=== PATIENT | male | born 1985 | race Caucasian/White ===

== ENCOUNTER 2016-08-18 13:25 | Emergency (ER) | payer BC, OTHER ==
[~2016-08-18] VITALS: Ht 180.3 cm; Wt 86.0 kg
[2016-08-18 13:26] VITALS: BP 119/75; PULSE 80; RESP 20; TEMP 97.9; O2SAT 96
--- NOTE | 2016-08-18 15:15 | PD ---
Physical Exam Date Seen by Provider: Aug 18, 2016 Time Seen by Provider: 15:13 Narrative 31 YOWM WITH C/O WORSENING CHRONIC ABD PAIN. WORSEN TODAY HAD N/V EARLIER NONE NOW. PAIN 10/25. NO F/C VSS AWAITING BED PLACEMENT Data Data Last Documented VS Vital Signs Date Time Temp Pulse Resp B/P Pulse Ox O2 Delivery O2 Flow Rate FiO2 08/18/16 13:26 97.9 80 20 119/75 96 Room Air [facility] Medical Record Reviewed: Yes Supervised Visit with JARROD: Yes Daljit Martinez Aug 18, 2016 15:15
[2016-08-18 19:36] VITALS: BP 149/90; PULSE 58; RESP 18; O2SAT 100
[2016-08-18] MEDS ORDERED: SODIUM CHLOR 0.9% 1000 ML INJ 1,000 ML IV SCH (19:37)
[2016-08-18 19:40] VITALS: O2SAT 99
[2016-08-18] MEDS ORDERED: PRIL20CA9 PO (19:40)
[2016-08-18] MEDS ORDERED: OMEP40CA2 PO (19:40)
--- NOTE | 2016-08-18 19:41 | PD ---
HPI Chief Complaint: Abdominal Pain Time Seen by Provider: 19:31 Travel History International Travel<30 days: No Contact w/Intl Traveler<30days: No Traveled to known affect area: No History of Present Illness HPI 31-year-old male here for evaluation of abdominal pain. The patient has history of cholecystectomy and appendectomy. He states that his cholecystectomy was 2 years ago, and for the last 2 years he has been having intermittent abdominal pains. These pains have worsened over the last several days. Pain is mainly right mid and right upper quadrant, described as sharp, 7 out of 10, worse with movement and palpation. Patient reports feeling a knot/ bulge in that area a couple days ago. No urinary symptoms. He has had some darkish stools. He is also felt nauseous but has not vomited. [facility] Social History Alcohol Use: Yes Tobacco Use: Yes Allergies-Medications (Allergen,Severity, Reaction): Coded Allergies: Tramadol (Verified Allergy, Severe, Nausea/Vomiting, 08/18/16) Reported Meds & Prescriptions Reported Meds & Active Scripts Active Flagyl (Metronidazole) 500 Mg Tab 500 Mg PO BID 10 Days Percocet (Oxycodone-Acetaminophen) 5-325 mg Tab 1 Tab PO Q6H PRN Reported Omeprazole 40 Mg Cap 40 Mg PO DAILY Prilosec (Omeprazole) 20 Mg Cap 20 Mg PO DAILY Review of Systems Except as stated in HPI: all other systems reviewed are Neg Physical Exam Narrative GENERAL: Well-developed, well-nourished, comfortable, no acute distress. SKIN: Focused skin assessment warm/dry. HEAD: Atraumatic. Normocephalic. EYES: Pupils equal and round. No scleral icterus. No injection or drainage. ENT: Mucous membranes pink and moist. CARDIOVASCULAR: Regular rate and rhythm. RESPIRATORY: No accessory muscle use. Clear to auscultation. Breath sounds equal bilaterally. GASTROINTESTINAL: Abdomen soft, nondistended. Mild diffuse tenderness without peritoneal signs. No hernias. Normal bowel sounds. MUSCULOSKELETAL: No obvious deformities. No clubbing. No cyanosis. No edema. NEUROLOGICAL: Awake and alert. No obvious cranial nerve deficits. Motor grossly within normal limits. Normal speech. PSYCHIATRIC: Appropriate mood and affect; insight and judgment normal. Data Data Last Documented VS Vital Signs Date Time Temp Pulse Resp B/P Pulse Ox O2 Delivery O2 Flow Rate FiO2 08/18/16 19:40 99 Room Air 08/18/16 19:36 58 18 149/90 08/18/16 13:26 97.9 Orders Complete Blood Count With Diff (08/18/16 19:37) Comprehensive Metabolic Panel (08/18/16 19:37) Lipase (08/18/16 19:37) Prothrombin Time / Inr (Pt) (08/18/16 19:37) Act Partial Throm Time (Ptt) (08/18/16 19:37) Urinalysis - C+S If Indicated (08/18/16 19:37) Ct Abd/Pel W Iv Contrast(Rout) (08/18/16 19:37) Iv Access Insert/Monitor (08/18/16 19:37) Ecg Monitoring (08/18/16 19:37) Oximetry (08/18/16 19:37) Morphine Inj (Morphine Inj) (08/18/16 19:45) Ondansetron Inj (Zofran Inj) (08/18/16 19:45) Sodium Chlor 0.9% 1000 Ml Inj (Ns 1000 M (08/18/16 19:37) Sodium Chloride 0.9% Flush (Ns Flush) (08/18/16 19:45) Dicyclomine Inj (Bentyl Inj) (08/18/16 19:45) Iohexol 350 Inj (Omnipaque 350 Inj) (08/18/16 20:39) Metronidazole (Flagyl) (08/18/16 21:15) Ketorolac Inj (Toradol Inj) (08/18/16 21:15) Labs Laboratory Tests Test 08/18/16 08/18/16 19:45 21:00 White Blood Count 7.4 TH/MM3 Red Blood Count 4.87 MIL/MM3 Hemoglobin 14.6 GM/DL Hematocrit 42.6 % Mean Corpuscular Volume 87.4 FL Mean Corpuscular Hemoglobin 30.0 PG Mean Corpuscular Hemoglobin 34.3 % Concent Red Cell Distribution Width 12.7 % Platelet Count 226 TH/MM3 Mean Platelet Volume 8.1 FL Neutrophils (%) (Auto) 57.1 % Lymphocytes (%) (Auto) 35.5 % Monocytes (%) (Auto) 5.9 % Eosinophils (%) (Auto) 1.1 % Basophils (%) (Auto) 0.4 % Neutrophils # (Auto) 4.2 TH/MM3 Lymphocytes # (Auto) 2.6 TH/MM3 Monocytes # (Auto) 0.4 TH/MM3 Eosinophils # (Auto) 0.1 TH/MM3 Basophils # (Auto) 0.0 TH/MM3 CBC Comment DIFF FINAL Differential Comment Prothrombin Time 10.5 SEC Prothromb Time International 1.0 RATIO Ratio Activated Partial 23.8 SEC Thromboplast Time Sodium Level 143 MEQ/L Potassium Level 3.6 MEQ/L Chloride Level 105 MEQ/L Carbon Dioxide Level 28.4 MEQ/L Anion Gap 10 MEQ/L Blood Urea Nitrogen 10 MG/DL Creatinine 0.79 MG/DL Estimat Glomerular Filtration 116 ML/MIN Rate Random Glucose 103 MG/DL Calcium Level 9.5 MG/DL Total Bilirubin 0.6 MG/DL Aspartate Amino Transf 16 U/L (AST/SGOT) Alanine Aminotransferase 33 U/L (ALT/SGPT) Alkaline Phosphatase 62 U/L Total Protein 7.4 GM/DL Albumin 4.3 GM/DL Lipase 129 U/L Urine Color YELLOW Urine Turbidity CLEAR Urine pH 6.5 Urine Specific [place] GREATER THAN 1.035 Urine Protein TRACE mg/dL Urine Glucose (UA) NEG mg/dL Urine Ketones NEG mg/dL Urine Occult Blood MOD Urine Nitrite NEG Urine Bilirubin NEG Urine Urobilinogen LESS THAN 2.0 MG/DL Urine Leukocyte Esterase NEG Urine RBC 45 /hpf Urine WBC 2 /hpf Urine Squamous Epithelial <1 /hpf Cells Urine Mucus FEW /lpf Microscopic Urinalysis Comment CULT NOT INDICATED MDM Medical Decision Making Medical Screen Exam Complete: Yes Emergency Medical Condition: Yes Differential Diagnosis Hepatobiliary disease, pancreatitis, gastritis, peptic ulcer disease, enteritis , adhesions, Narrative Course Vital signs reviewed. CBC is unremarkable. CMP is unremarkable. Lipase is 129. CT abdomen pelvis: FINDINGS: CT Abdomen: The spleen, pancreas, adrenals are unremarkable. There are multiple tiny subcentimeter cysts in both kidneys. There is no evidence for any appreciable pathological adenopathy, free fluid, or bowel obstruction. There is evidence for prior cholecystectomy. There is a tiny subcentimeter area of diminished attenuation in the left hepatic lobe possibly a vascular phenomenon or may be a small complicated cyst or hemangioma. It is nonspecific. There is abdominal and pelvic lipomatosis with prominent fat involving the mesentery with slight pierre appearance the upper abdominal mesentery chronic in nature may be due to chronic mesentritis. There are scattered subcentimeter mesenteric lymph nodes benign appearance. CT pelvis: There is no evidence for mass, abscess formation, or any significant adenopathy within the pelvis. The prostate gland is inhomogeneous and measures 2.6 x 3.8 cm in AP and transverse diameters and nonspecific. CONCLUSION: Pierre appearance to the mesentery with intra-abdominal and pelvic lipomatosis, simple cysts in the kidneys and probable cyst or hemangioma of left hepatic lobe. The patient and the patient's significant other were made aware of all findings. He is resting comfortably. He can be further worked up as an outpatient. I will start him on Flagyl and will give him a prescription for narcotic pain medication. He was informed on when to return to the emergency department. He verbalizes understanding and agreement with plan. Diagnosis Primary Impression: Lipomatosis Additional Impression: Renal cyst Referrals: Primary Care Physician 3 days Additional Instructions: Follow-up with your primary care physician this week. Return to the emergency department for worsening symptoms or any other concerns. Scripts Metronidazole (Flagyl)500 Mg Coz512 Mg PO BID 10 Days Ref 0 Prov:Hernandez Garcia MD 08/18/16 Oxycodone-Acetaminophen (Percocet)5-325 mg Tab1 Tab PO Q6H PRN (PAIN) #15 TAB Ref 0 Prov:Hernandez Garcia MD 08/18/16 Disposition: 01 DISCHARGE HOME Condition: Stable Hernandez Garcia MD Aug 18, 2016 19:41
[2016-08-18] MEDS ORDERED: SODIUM CHLORIDE 0.9% FLUSH 10 ML FLUSH IV FLUSH PRN (19:45)
[2016-08-18] MEDS ORDERED: DICYCLOMINE HCL 20 MG/2 ML VIAL IM ONE (19:45)
[2016-08-18] MEDS ORDERED: ONDANSETRON HCL 4 MG/2 ML VIAL IVP ONE (19:45)
[2016-08-18] MEDS ORDERED: MORPHINE SULFATE 4 MG/ML INJ IV PUSH ONE (19:45)
[2016-08-18 20:27] LABS: AUTOMATED NEUTROPHIL # 4.2 TH/MM3 (1.8-7.7); BASOPHIL % 0.4 % (0.0-2.0); EOSINOPHIL # 0.1 TH/MM3 (0-0.4); EOSINOPHIL % 1.1 % (0.0-4.0); HEMATOCRIT 42.6 % (39.0-51.0); HEMO FLAGS DIFF FINAL; LYMPH % 35.5 % (9.0-44.0); LYMPHOCYTE # 2.6 TH/MM3 (1.0-4.8); MEAN CELL VOLUME 87.4 FL (80.0-100.0); MEAN CORPUSCULAR HGB CONC 34.3 % (32.0-36.0); MONO % 5.9 % (0.0-8.0); NEUT % 57.1 % (16.0-70.0); PLATELET COUNT 226 TH/MM3 (150-450); RED BLOOD COUNT 4.87 MIL/MM3 (4.50-5.90); RED CELL DISTRIBUTION WIDTH 12.7 % (11.6-17.2); WHITE BLOOD COUNT 7.4 TH/MM3 (4.0-11.0)
[2016-08-18] MEDS ORDERED: IOHEXOL 350 MG/ML 10 ML VIAL (for RAD DIAG) IV ONE (20:39)
--- NOTE | 2016-08-18 20:42 | RADRPT ---
EXAM DATE/TIME: 08/18/2016 20:04 [place] COMPARISON: No previous studies available for comparison. INDICATIONS : Right upper quadrant pain for three days. IV CONTRAST: 66 cc Omnipaque 350 (iohexol) IV ORAL CONTRAST: No oral contrast ingested. RADIATION DOSE: 12.27 CTDIvol (mGy) MEDICAL HISTORY : None SURGICAL HISTORY : Appendectomy. Cholecystectomy. ENCOUNTER: Initial ACUITY: 3 days PAIN SCALE: 10/10 LOCATION: Right Abdomen TECHNIQUE: Volumetric scanning of the abdomen and pelvis was performed. Using automated exposure control and ad justment of the mA and/or kV according to patient size, radiation dose was kept as low as reasonably achievable to obtain optimal diagnostic quality images. FINDINGS: CT Abdomen: The spleen, pancreas, adrenals are unremarkable. There are multiple tiny subcentimeter c ysts in both kidneys. There is no evidence for any appreciable pathological adenopathy, free fluid, o r bowel obstruction. There is evidence for prior cholecystectomy. There is a tiny subcentimeter area of diminished attenuation in the left hepatic lobe possibly a vascular phenomenon or may be a small complicated cyst or hemangioma. It is nonspecific. There is abdominal and pelvic lipomatosis with pro minent fat involving the mesentery with slight pierre appearance the upper abdominal mesentery chronic in nature may be due to chronic mesentritis. There are scattered subcentimeter mesenteric lymph node s benign appearance. CT pelvis: There is no evidence for mass, abscess formation, or any significant adenopathy within the pelvis. The prostate gland is inhomogeneous and measures 2.6 x 3.8 cm in AP and transverse diameters and nonspecific. CONCLUSION: Pierre appearance to the mesentery with intra-abdominal and pelvic lipomatosis, simple cysts in the kidneys and probable cyst or hemangioma of left hepatic lobe. Remigio Rangel MD on August 18, 2016 at 20:35 Board Certified Radiologist. This report was verified electronically.
[2016-08-18 20:43] LABS: APTT (PATIENT) 23.8 SEC (24.3-30.1); PROTHROMBIN TIME - PATIENT 10.5 SEC (9.8-11.6)
[2016-08-18 20:45] LABS: ANION GAP 10 MEQ/L (5-15); AST (GOT) 16 U/L (15-37); BICARBONATE 28.4 MEQ/L (21.0-32.0); BLOOD UREA NITROGEN 10 MG/DL (7-18); CHLORIDE 105 MEQ/L (98-107); GLOMERULAR FILTRATION RATE 116 ML/MIN (>89); POTASSIUM 3.6 MEQ/L (3.5-5.1); SODIUM (NA) 143 MEQ/L (136-145)
[2016-08-18 20:48] LABS: ALKALINE PHOSPHATASE 62 U/L (45-117); ALT (GPT) 33 U/L (12-78); TOTAL BILIRUBIN ADULT 0.6 MG/DL (0.2-1.0)
[2016-08-18] MEDS ORDERED: metroNIDAZOLE 500 MG TAB PO ONE (21:15)
[2016-08-18] MEDS ORDERED: KETOROLAC TROMETHAMINE 30 MG/ML (IVP) VIAL IV PUSH ONE (21:15)
[2016-08-18] MEDS ORDERED: PERC5TAB12 PO (21:16)
[2016-08-18] MEDS ORDERED: METR-1 PO (21:16)
[2016-08-18 21:57] LABS: BLOOD, URINE MOD (NEG); COMMENT (UR) CULT NOT INDICATED; CULTURE IF INDICATED CULT NOT INDICATED; GLUCOSE,URINE NEG (NEG); KETONE, URINE NEG (NEG); MUCUS URINE FEW /lpf (OCC); NITRITE,URINE NEG (NEG); PH, URINE 6.5 (5.0-8.5); SQUAMOUS EPITHELIAL CELL URINE <1 /hpf (0-5); URINE COLOR YELLOW (YELLW/STRAW)
[2016-08-19] MEDS ORDERED: ZANT150T2 PO (23:07)
== END 2016-08-18 21:46 | disposition home or self-care (01) ==
LOC: NEPA 13:25
DX: E88.2 Lipomatosis, not elsewhere classified (principal); N28.1 Cyst of kidney, acquired; Z90.49 Acquired absence of other specified parts of digestive tract
CPT/HCPCS: 74177; 80053; 81001; 83690; 85025; 85610; 85730; 96372; 96374; 96375; 99284; J0500; J1885; J2270; J2405; J7030; Q9967

== ENCOUNTER 2016-08-19 18:59 | Emergency (ER) | payer OTHER, BC ==
[~2016-08-19] VITALS: Ht 180.3 cm; Wt 86.0 kg
[~2016-08-19 18:59] MED LIST: METR-1 PO; OMEP40CA2 PO; PERC5TAB12 PO; PRIL20CA9 PO
[2016-08-19 19:00] VITALS: BP 117/85; PULSE 87; RESP 18; TEMP 97.9; O2SAT 99
--- NOTE | 2016-08-19 19:17 | PD ---
Physical Exam Date Seen by Provider: Aug 19, 2016 Time Seen by Provider: 19:16 Narrative 31 YOWM WITH C/O WORSENING CHRONIC ABD PAIN. WORSEN TODAY HAD N/V EARLIER NONE NOW. PAIN 12/25. NO F/C SEEN YEST IN ED FOR SAME VSS AWAITING BED PLACEMENT Data Data Last Documented VS Vital Signs Date Time Temp Pulse Resp B/P Pulse Ox O2 Delivery O2 Flow Rate FiO2 08/19/16 19:00 97.9 87 18 117/85 99 Room Air [facility] Medical Record Reviewed: Yes Supervised Visit with JARROD: Yes Daljit Martinez Aug 19, 2016 19:17
[2016-08-19] MEDS ORDERED: SODIUM CHLOR 0.9% 1000 ML INJ 1,000 ML IV SCH (20:33)
[2016-08-19] MEDS ORDERED: ALUMINUM/MAGNESIUM/SIMETH 30 ML CUP PO ONE (20:45)
[2016-08-19] MEDS ORDERED: LIDOCAINE VISCOUS 2% SOLN 15 ML UDC PO ONE (20:45)
[2016-08-19] MEDS ORDERED: ONDANSETRON HCL 4 MG/2 ML VIAL IVP ONE (20:45)
[2016-08-19] MEDS ORDERED: FAMOTIDINE 20 MG/2 ML VIAL IV PUSH ONE (20:45)
[2016-08-19] MEDS ORDERED: SODIUM CHLORIDE 0.9% FLUSH 10 ML FLUSH IV FLUSH PRN (20:45)
[2016-08-19] MEDS ORDERED: MORPHINE SULFATE 4 MG/ML INJ IV PUSH ONE ×2 (20:45→22:45)
[2016-08-19 21:04] VITALS: PULSE 70; RESP 18; O2SAT 99
[2016-08-19 21:17] LABS: AUTOMATED NEUTROPHIL # 2.8 TH/MM3 (1.8-7.7); BASOPHIL % 0.5 % (0.0-2.0); EOSINOPHIL # 0.2 TH/MM3 (0-0.4); EOSINOPHIL % 4.4 % (0.0-4.0); HEMATOCRIT 39.1 % (39.0-51.0); HEMO FLAGS DIFF FINAL; LYMPH % 36.6 % (9.0-44.0); LYMPHOCYTE # 2.1 TH/MM3 (1.0-4.8); MEAN CELL VOLUME 86.9 FL (80.0-100.0); MEAN CORPUSCULAR HEMOGLOBIN 30.5 PG (27.0-34.0); MEAN CORPUSCULAR HGB CONC 35.1 % (32.0-36.0); MONO % 9.4 % (0.0-8.0); NEUT % 49.1 % (16.0-70.0); PLATELET COUNT 195 TH/MM3 (150-450); RED CELL DISTRIBUTION WIDTH 12.6 % (11.6-17.2); WHITE BLOOD COUNT 5.6 TH/MM3 (4.0-11.0)
[2016-08-19 21:33] LABS: APTT (PATIENT) 23.8 SEC (24.3-30.1); INTERNATIONAL NORMALIZED RATIO 0.9 RATIO; PROTHROMBIN TIME - PATIENT 10.3 SEC (9.8-11.6)
[2016-08-19 21:51] LABS: BICARBONATE 29.3 MEQ/L (21.0-32.0); INDIRECT BILIRUBIN 0.2 MG/DL (0.0-0.8); POTASSIUM 3.9 MEQ/L (3.5-5.1); TOTAL BILIRUBIN ADULT 0.3 MG/DL (0.2-1.0)
[2016-08-19 22:45] VITALS: BP 101/72; PULSE 75; RESP 16; O2SAT 100
[2016-08-19] MEDS ORDERED: ZANT150T2 PO (23:07)
--- NOTE | 2016-08-19 23:07 | PD ---
HPI Chief Complaint: Abdominal Pain Time Seen by Provider: 20:24 Travel History International Travel<30 days: No Contact w/Intl Traveler<30days: No Traveled to known affect area: No History of Present Illness HPI Patient is a 31 year old male who comes in complaining of abdominal pain. He says he has had the pain on and off for the past several months since having his gallbladder removed. He says that usually the pain comes on for a day or two and then he gets better. He says he was told it was acid reflux and he takes omeprazole for it. This time, he says the pain has lasted longer, so he came into the emergency department. He was seen yesterday and had a CAT scan performed that showed multiple lipomas in his abdomen, no other abnormalities. He is given prescription for pain medicine and Flagyl. He says he took the pain medicine, but it is not helping. PFSH Past Medical History Anxiety: Yes Immunizations Current: Yes Past Surgical History Abdominal Surgery: Yes (colosctomy 2 years ago took polps off ) Appendectomy: Yes Cholecystectomy: Yes Social History Alcohol Use: Yes Tobacco Use: Yes Substance Use: No Allergies-Medications (Allergen,Severity, Reaction): Coded Allergies: Tramadol (Verified Allergy, Severe, Nausea/Vomiting, 08/19/16) Reported Meds & Prescriptions Reported Meds & Active Scripts Active Zantac (Ranitidine HCl) 150 Mg Tab 150 Mg PO BID Flagyl (Metronidazole) 500 Mg Tab 500 Mg PO BID 10 Days Percocet (Oxycodone-Acetaminophen) 5-325 mg Tab 1 Tab PO Q6H PRN Reported Omeprazole 40 Mg Cap 40 Mg PO DAILY Review of Systems Except as stated in HPI: all other systems reviewed are Neg General / Constitutional: No: Fever, Chills HENT: No: Headaches Cardiovascular: No: Chest Pain or Discomfort Respiratory: No: Shortness of Breath Gastrointestinal: Positive: Abdominal Pain Musculoskeletal: No: Myalgias Skin: No Rash, No Change in Pigmentation Physical Exam Narrative GENERAL: Awake and alert, in no acute distress. SKIN: Focused skin assessment warm/dry. HEAD: Atraumatic. Normocephalic. EYES: Pupils equal and round. No scleral icterus. ENT: Mucous membranes pink and moist. NECK: Trachea midline. No JVD. CARDIOVASCULAR: Regular rate and rhythm. No murmur appreciated. RESPIRATORY: No accessory muscle use. Clear to auscultation. Breath sounds equal bilaterally. GASTROINTESTINAL: Abdomen soft, nondistended. Tender to palpation of the epigastric area and right upper quadrant. No rebound or guarding. MUSCULOSKELETAL: No obvious deformities. No clubbing. No cyanosis. No edema. NEUROLOGICAL: Awake and alert. No obvious cranial nerve deficits. Motor grossly within normal limits. Normal speech. PSYCHIATRIC: Appropriate mood and affect; insight and judgment normal. Data Data Last Documented VS Vital Signs Date Time Temp Pulse Resp B/P Pulse Ox O2 Delivery O2 Flow Rate FiO2 08/19/16 22:45 75 16 101/72 100 Room Air 08/19/16 19:00 97.9 Orders Basic Metabolic Panel (Bmp) (08/19/16 20:33) Complete Blood Count With Diff (08/19/16 20:33) Lipase (08/19/16 20:33) Lactic Acid (08/19/16 20:33) Prothrombin Time / Inr (Pt) (08/19/16 20:33) Act Partial Throm Time (Ptt) (08/19/16 20:33) Iv Access Insert/Monitor (08/19/16 20:33) Ecg Monitoring (08/19/16 20:33) Oximetry (08/19/16 20:33) Morphine Inj (Morphine Inj) (08/19/16 20:45) Ondansetron Inj (Zofran Inj) (08/19/16 20:45) Sodium Chlor 0.9% 1000 Ml Inj (Ns 1000 M (08/19/16 20:33) Sodium Chloride 0.9% Flush (Ns Flush) (08/19/16 20:45) Famotidine Inj (Pepcid Inj) (08/19/16 20:45) Al-Mag Hy-Si 40-40-4 Mg/Ml Liq (Mag-Al P (08/19/16 20:45) Lidocaine 2% Viscous (Xylocaine 2% Visco (08/19/16 20:45) Hepatic Functional Panel (08/19/16 20:33) Morphine Inj (Morphine Inj) (08/19/16 22:45) Labs Laboratory Tests Test 08/19/16 20:55 White Blood Count 5.6 TH/MM3 Red Blood Count 4.50 MIL/MM3 Hemoglobin 13.7 GM/DL Hematocrit 39.1 % Mean Corpuscular Volume 86.9 FL Mean Corpuscular Hemoglobin 30.5 PG Mean Corpuscular Hemoglobin 35.1 % Concent Red Cell Distribution Width 12.6 % Platelet Count 195 TH/MM3 Mean Platelet Volume 8.3 FL Neutrophils (%) (Auto) 49.1 % Lymphocytes (%) (Auto) 36.6 % Monocytes (%) (Auto) 9.4 % Eosinophils (%) (Auto) 4.4 % Basophils (%) (Auto) 0.5 % Neutrophils # (Auto) 2.8 TH/MM3 Lymphocytes # (Auto) 2.1 TH/MM3 Monocytes # (Auto) 0.5 TH/MM3 Eosinophils # (Auto) 0.2 TH/MM3 Basophils # (Auto) 0.0 TH/MM3 CBC Comment DIFF FINAL Differential Comment Prothrombin Time 10.3 SEC Prothromb Time International 0.9 RATIO Ratio Activated Partial 23.8 SEC Thromboplast Time Sodium Level 142 MEQ/L Potassium Level 3.9 MEQ/L Chloride Level 108 MEQ/L Carbon Dioxide Level 29.3 MEQ/L Anion Gap 5 MEQ/L Blood Urea Nitrogen 12 MG/DL Creatinine 0.81 MG/DL Estimat Glomerular Filtration 113 ML/MIN Rate Random Glucose 91 MG/DL Lactic Acid Level 0.8 mmol/L Calcium Level 8.8 MG/DL Total Bilirubin 0.3 MG/DL Direct Bilirubin 0.1 MG/DL Indirect Bilirubin 0.2 MG/DL Aspartate Amino Transf 19 U/L (AST/SGOT) Alanine Aminotransferase 32 U/L (ALT/SGPT) Alkaline Phosphatase 56 U/L Total Protein 6.3 GM/DL Albumin 3.5 GM/DL Lipase 130 U/L MDM Medical Decision Making Medical Screen Exam Complete: Yes Emergency Medical Condition: Yes Medical Record Reviewed: Yes Differential Diagnosis Gastritis versus GERD versus pancreatitis Narrative Course Patient is a 31-year-old male comes in complaining of abdominal pain. Exam shows epigastric and right upper quadrant tenderness. Patient had a CT performed yesterday that did not show any acute findings. IV established, labs sent. Lactic acid and all other labs are within normal limits. Patient given pain medicine and GI cocktail. Patient advised he needs to follow-up with GI. Advised to continue to take prescribed medications. Advised to avoid spicy food. Advised to avoid alcohol and tobacco use. Advised to return to the ED as needed for any worsening symptoms. Diagnosis Primary Impression: Abdominal pain Qualified Code: R10.13 - Epigastric pain Referrals: Kayleigh Cordova MD call for appointment Patient Instructions: Abdominal Pain (ED), Gastritis (ED), General Instructions Additional Instructions: Avoid spicy foods, caffeine, smoking, alcohol. Take your antacids. Follow up with gastroenterology. Return to the ED as needed for any worsening symptoms . Scripts Ranitidine (Zantac)150 Mg Ldx054 Mg PO BID #60 TAB Ref 0 Prov:Evelyn Clark MD 08/19/16 Disposition: 01 DISCHARGE HOME Condition: Stable Evelyn Clark MD Aug 19, 2016 23:07
== END 2016-08-20 00:15 | disposition home or self-care (01) ==
LOC: NEPC 18:59
DX: R10.13 Epigastric pain (principal)
CPT/HCPCS: 80048; 80076; 83605; 83690; 85025; 85610; 85730; 96361; 96374; 96375; 96376; 99283; J2270; J2405; J7030